=== PATIENT | female | born 1950 | race Caucasian/White ===

== ENCOUNTER 2018-06-04 07:32 | Emergency (ER) | payer BC ==
[~2018-06-04] VITALS: Ht 167.6 cm; Wt 70.8 kg
[~2018-06-04 07:32] MED LIST: PAROXETINE HCL20 MG PO; TIROSINT50 MCG PO
[2018-06-04] MEDS ORDERED: AUGMENTIN875 MG PO (08:07)
[2018-06-04 09:39] VITALS: BP 151/71
== END 2018-06-04 09:40 | disposition home or self-care (01) ==
LOC: EME 07:32
PROC: 3E0234Z Introduction of Serum, Toxoid and Vaccine into Muscle, Percutaneous Approach (ICD-10-PCS; principal; 2018-06-04)
DX: S61.230A Puncture wound without foreign body of right index finger without damage to nail, initial encounter (principal); W55.01XA Bitten by cat, initial encounter; Z88.5 Allergy status to narcotic agent; Z23 Encounter for immunization; Z20.3 Contact with and (suspected) exposure to rabies; Z29.14 Encounter for prophylactic rabies immune globulin
CPT/HCPCS: 99281; 99284